=== PATIENT | female | born 1960 | race Caucasian/White ===

== ENCOUNTER 2022-04-11 18:23 | Emergency (ER) | payer OTHER, SELFPAY ==
[2022-04-11 19:48] VITALS: BP 177/103; PULSE 81; RESP 18; TEMP 36.7; O2SAT 97; BMI 21.9
--- NOTE | 2022-04-11 19:56 | EXP.UTC ---
Discharge Plan Disposition Patient Disposition: Home, Self-Care Condition: Good Prescriptions Prescriptions: New benzonatate [benzonatate] 100 mg capsule 100 mg PO TIDP PRN (Reason: Cough) Qty: 30 0RF methylprednisolone 4 mg Tablets,Dose Pack 4 mg PO DIRECTED Qty: 21 0RF oseltamivir [Tamiflu] 75 mg capsule 75 mg PO BID Qty: 10 0RF No Action fluoxetine 20 mg capsule 20 mg PO DAILY Qty: 90 0RF lisinopril 20 mg tablet 20 mg PO DAILY Qty: 90 0RF metoprolol succinate 200 mg tablet extended release 24 hr 200 mg PO DAILY Qty: 90 0RF diazepam 10 mg tablet 10 mg PO TID Qty: 90 2RF cephalexin 500 mg capsule 500 mg PO TID Qty: 30 0RF hydrocodone-acetaminophen 5-325 mg tablet 1 tab PO TID PRN (Reason: pain) 5 Days Qty: 15 0RF Referrals Follow up/Referrals: Dinh Fierro MD [Primary Care Provider] - See instructions Activity Restrictions/Add. Instructions Additional Instructions/Restrictions: Drink plenty of fluids. Take tylenol or ibuprofen for pain or fever. Take the medications as directed. Follow up with your regular doctor. GO TO THE ER FOR ANY WORSENING SYMPTOMS Clinical Impressions Clinical Impression: Acute viral syndrome, Exposure to influenza Instructions Patient Instructions: DI for Influenza -- Adult, Oseltamivir Discharge ED Provider: Leoncio Jenkins [facility] [place] General Stated complaint: body aches Mode of Arrival: Ambulatory Source of Information: Patient Limitations: No Limitations Time Seen by Provider: 04/11/22 19:56 HEENT Symptoms (Recalled from RN notes): Yes Resp Symptoms (Recalled from RN notes): Yes Skin Symptoms (Recalled from RN notes): No MS Symptoms (Recalled from RN notes): No Functional Status (Recalled from RN notes): n/a History of Present Illness Provider Complaint: pt comes in with c/o body aches, headache, cough. ongoing for 3 days. she was exposed to flu recently Related Data Previous Rx's Medication Instructions Recorded diazepam 10 mg tablet 10 mg PO TID #90 tabs 03/17/22 fluoxetine 20 mg capsule 20 mg PO DAILY #90 caps 03/17/22 lisinopril 20 mg tablet 20 mg PO DAILY #90 tabs 03/17/22 metoprolol succinate 200 mg 200 mg PO DAILY #90 tabs 03/17/22 tablet,extended release 24 hr cephalexin 500 mg capsule 500 mg PO TID #30 caps 04/01/22 benzonatate 100 mg capsule 100 mg PO TIDP PRN Cough #30 caps 04/11/22 hydrocodone 5 mg-acetaminophen 325 1 tab PO TID PRN pain 5 days #15 04/11/22 mg tablet tabs methylprednisolone 4 mg tablets in 4 mg PO DIRECTED #21 tabs 04/11/22 a dose pack oseltamivir 75 mg capsule (Tamiflu) 75 mg PO BID #10 caps 04/11/22 Allergies Allergy/AdvReac Type Severity Reaction Status Date / Time No Known Allergies Allergy Verified 04/11/22 19:50 Worker's Comp Is this a Worker's Comp case?: No [facility] Disclaimer: The information contained in this section may have been updated after the patient was seen, as this information can be updated by other users. Medical History Anxiety Crohn disease Hep C w/o coma, chronic Hypertension Family History Other Diabetes Social History Smoking Status: Current every day smoker alcohol intake: never substance use type: denies use current occupational status: unemployed Travel in the last 8 weeks: None ROS Obtained: Yes All systems reviewed & no additional complaints except as documented Constitutional Constitutional: Reports chills and Reports fever(s) Eyes Eyes: Denies eye discharge ENT Ears, Nose, Mouth, and Throat: Reports as per HPI Cardiovascular Cardiovascular: Denies chest pain Respiratory Respiratory: Denies chest congestion and Reports cough Gastrointestinal Gastrointestingal: Reports nausea; Denies abdominal pain, constipation, cramping, diarrhea or vomit
[2022-04-11 20:25] VITALS: BP 177/103; PULSE 81; RESP 18; TEMP 36.7
== END 2022-04-11 20:26 | disposition home or self-care (01) ==
PROVIDERS: Emergency Provider Nurse Practitioner Family; PCP Emergency Medicine
DX: R52 Pain, unspecified (principal); B34.9 Viral infection, unspecified; Z20.828 Contact with and (suspected) exposure to other viral communicable diseases
CPT/HCPCS: 99212; C9803; G0463; U0003; U0005

== ENCOUNTER → 2022-08-08 23:49 | Outpatient (CLI) | payer OTHER, SELFPAY ==
[2022-08-08 20:11] LABS: Amphetamine/Metha Screen,Urine Negative ng/ml (<1000); Barbiturates Screen,Urine Negative ng/ml (<200)
[2022-08-08 20:12] LABS: Benzodiazepines Screen,Urine Positive ng/ml (<200)
[2022-08-08 20:13] LABS: Cannabinoid Screen,Urine Negative ng/ml (<50)
[2022-08-08 20:14] LABS: Cocaine Screen,Urine Negative ng/ml (<300); Methadone Screen,Urine Negative ng/ml (<300)
[2022-08-08 20:15] LABS: Opiate Screen,Urine Positive ng/ml (<300)
[2022-08-08 20:16] LABS: Phencyclidine Screen,Urine Negative ng/ml (<25)
== END ==
PROVIDERS: PCP Emergency Medicine; Visit Provider Emergency Medicine
DX: F41.9 Anxiety disorder, unspecified (principal)
CPT/HCPCS: 80305

== ENCOUNTER → 2022-11-05 13:50 | Outpatient (CLI) | payer OTHER, SELFPAY ==
[2022-11-05 18:52] LABS: Basophils # 0.1 K/mm3 (0-0.2); Basophils % 1.1 % (0.1-2.0); Eosinophils # 0.2 K/mm3 (0.0-0.4); Eosinophils % 1.7 % (0.1-12.0); Hematocrit 51.7 % (37.0-47.0); Hemoglobin 16.4 g/dL (12.2-16.2); Lymphocytes # 2.5 K/mm3 (0.7-4.5); Lymphocytes % 24.9 % (10-50); Mean Corpuscular HGB Conc 31.7 g/dL (31.8-35.4); Mean Corpuscular Hemoglobin 29.7 pg (27.0-31.2); Mean Corpuscular Volume 93.7 fl (81-99); Mean Platelet Volume 9.4 fl (7.4-10.4); Monocytes # 0.7 K/mm3 (0.1-1.0); Monocytes % 7.5 % (1.7-9.3); Neutrophils # 6.5 K/mm3 (1.8-7.8); Neutrophils % 64.9 % (37.0-80.0); Platelet Count 299 K/mm3 (142-424); Red Blood Count 5.52 M/mm3 (4.20-5.40); Red Cell Distribution Width 13.6 % (11.5-17.5)
[2022-11-05 19:07] LABS: Amphetamine/Metha Screen,Urine Negative ng/ml (<1000)
[2022-11-05 19:08] LABS: Barbiturates Screen,Urine Negative ng/ml (<200)
[2022-11-05 19:09] LABS: Benzodiazepines Screen,Urine Positive ng/ml (<200); Cannabinoid Screen,Urine Negative ng/ml (<50)
[2022-11-05 19:10] LABS: Cocaine Screen,Urine Negative ng/ml (<300)
[2022-11-05 19:11] LABS: Methadone Screen,Urine Negative ng/ml (<300)
[2022-11-05 19:12] LABS: Phencyclidine Screen,Urine Negative ng/ml (<25)
[2022-11-05 19:30] LABS: Alanine Aminotransferase 31 U/L (12-78); Albumin Level 4.7 g/dl (3.5-5.0); Albumin/Globulin Ratio 1.6 (1.1-1.8); Alkaline Phosphatase 91 U/L (38-126); Aspartate Amino Transferase 31 U/L (14-36); Bilirubin,Total 0.3 mg/dl (0.2-1.3); Blood Urea Nitrogen 19 mg/dl (7-17); Calcium 9.4 mg/dl (8.4-10.2); Carbon Dioxide 28 mmol/L (22.0-30.0); Chloride 103 mmol/L (98-107); Chol/HDL Ratio 4.2 (1-3.5); Cholesterol 257 mg/dl (140-200); Estimated Glomerular Filt Rate 85 ml/min (>60); GFR (African American) 103 ML/MIN (>60); Globulin 2.9 g/dL (1.3-3.2); Glucose 64 mg/dl (74-100); HDL Cholesterol 61 mg/dl (40-60); Sodium 142 mmol/L (136-145); Total Protein,Serum 7.6 g/dl (6.3-8.2); Triglycerides 361 mg/dl (30-150); VLDL Cholesterol 72 mg/dL (0-40)
[2022-11-05 19:40] LABS: Direct LDL Cholesterol 145.28 mg/dL (100-129)
[2022-11-05 19:42] LABS: Opiate Screen,Urine Negative ng/ml (<300)
[2022-11-05 19:44] LABS: Free T4 (Free Thyroxine) 1.11 ng/dl (0.78-2.19)
[2022-11-05 19:47] LABS: 25-OH Vitamin D, Total 21.3 ng/mL (30-100)
[2022-11-05 20:00] LABS: Thyroid Stimulating Hormone 3.32 uIU/mL (0.465-4.68)
== END ==
PROVIDERS: PCP Emergency Medicine; Visit Provider Emergency Medicine
DX: I10 Essential (primary) hypertension (principal); E55.9 Vitamin D deficiency, unspecified; Z79.899 Other long term (current) drug therapy
CPT/HCPCS: 80053; 80061; 80305; 82306; 84439; 84443; 85025

== ENCOUNTER → 2023-01-21 08:25 | Outpatient (CLI) | payer OTHER, SELFPAY ==
[2023-01-02 18:42] LABS: Amphetamine/Metha Screen,Urine Negative ng/ml (<1000)
[2023-01-02 18:43] LABS: Barbiturates Screen,Urine Negative ng/ml (<200)
[2023-01-02 18:44] LABS: Benzodiazepines Screen,Urine Positive ng/ml (<200); Cannabinoid Screen,Urine Positive ng/ml (<50)
[2023-01-02 18:46] LABS: Cocaine Screen,Urine Negative ng/ml (<300); Methadone Screen,Urine Negative ng/ml (<300)
[2023-01-02 18:47] LABS: Opiate Screen,Urine Negative ng/ml (<300)
[2023-01-02 18:48] LABS: Phencyclidine Screen,Urine Negative ng/ml (<25)
== END ==
PROVIDERS: PCP Emergency Medicine; Visit Provider Emergency Medicine
DX: M79.2 Neuralgia and neuritis, unspecified (principal)
CPT/HCPCS: 80305

== ENCOUNTER → 2023-03-02 06:49 | Outpatient (CLI) | payer OTHER, SELFPAY ==
[2023-03-02 20:38] LABS: Amphetamine/Metha Screen,Urine Positive ng/ml (<1000)
[2023-03-02 20:39] LABS: Barbiturates Screen,Urine Negative ng/ml (<200)
[2023-03-02 20:40] LABS: Benzodiazepines Screen,Urine Negative ng/ml (<200); Cannabinoid Screen,Urine Negative ng/ml (<50)
[2023-03-02 20:41] LABS: Opiate Screen,Urine Positive ng/ml (<300)
[2023-03-02 20:42] LABS: Cocaine Screen,Urine Negative ng/ml (<300); Methadone Screen,Urine Negative ng/ml (<300)
[2023-03-02 20:43] LABS: Phencyclidine Screen,Urine Negative ng/ml (<25)
== END ==
PROVIDERS: PCP Emergency Medicine; Visit Provider Emergency Medicine
DX: M79.2 Neuralgia and neuritis, unspecified (principal)
CPT/HCPCS: 80305

== ENCOUNTER → 2023-04-28 23:54 | Outpatient (CLI) | payer OTHER, SELFPAY ==
[2023-04-28 18:42] LABS: Amphetamine/Metha Screen,Urine Positive ng/ml (<1000)
[2023-04-28 18:43] LABS: Barbiturates Screen,Urine Negative ng/ml (<200)
[2023-04-28 18:44] LABS: Cocaine Screen,Urine Negative ng/ml (<300)
[2023-04-28 18:46] LABS: Cannabinoid Screen,Urine Positive ng/ml (<50); Phencyclidine Screen,Urine Negative ng/ml (<25)
[2023-04-28 18:47] LABS: Methadone Screen,Urine Negative ng/ml (<300)
[2023-04-28 19:09] LABS: Benzodiazepines Screen,Urine Negative ng/ml (<200); Opiate Screen,Urine Positive ng/ml (<300)
== END ==
PROVIDERS: PCP Internal Medicine; Visit Provider Internal Medicine
DX: Z79.899 Other long term (current) drug therapy (principal)
CPT/HCPCS: 80305

== ENCOUNTER 2023-05-29 18:23 | Outpatient (CLI) | payer OTHER, SELFPAY ==
[2023-05-29 18:29] LABS: Barbiturates Screen,Urine Negative ng/ml (<200)
[2023-05-29 18:30] LABS: Benzodiazepines Screen,Urine Positive ng/ml (<200)
[2023-05-29 18:31] LABS: Amphetamine/Metha Screen,Urine Negative ng/ml (<1000); Methadone Screen,Urine Negative ng/ml (<300)
[2023-05-29 18:32] LABS: Cannabinoid Screen,Urine Positive ng/ml (<50)
[2023-05-29 18:33] LABS: Cocaine Screen,Urine Negative ng/ml (<300)
[2023-05-29 18:35] LABS: Opiate Screen,Urine Negative ng/ml (<300)
[2023-05-29 18:36] LABS: Phencyclidine Screen,Urine Negative ng/ml (<25)
== END 2023-05-29 23:59 ==
LOC: LAB.DROPOF 18:23
PROVIDERS: PCP Internal Medicine; Visit Provider Internal Medicine
DX: Z79.899 Other long term (current) drug therapy (principal); F90.9 Attention-deficit hyperactivity disorder, unspecified type; M79.2 Neuralgia and neuritis, unspecified
CPT/HCPCS: 80307

== ENCOUNTER 2023-06-22 11:10 | Outpatient (CLI) | payer OTHER, SELFPAY ==
[2023-06-22 11:46] LABS: Basophils % 0.5 % (0.1-2.0); Eosinophils # 0.1 K/mm3 (0.0-0.4); Eosinophils % 1.4 % (0.1-12.0); Hematocrit 40.1 % (37.0-47.0); Hemoglobin 13.9 g/dL (12.2-16.2); Mean Corpuscular HGB Conc 34.6 g/dL (31.8-35.4); Mean Corpuscular Hemoglobin 31.2 pg (27.0-31.2); Mean Corpuscular Volume 90.1 fl (81-99); Monocytes # 0.4 K/mm3 (0.1-1.0); Monocytes % 5.5 % (1.7-9.3); Neutrophils # 6.2 K/mm3 (1.8-7.8); Neutrophils % 79.5 % (37.0-80.0); Platelet Count 224 K/mm3 (142-424); Red Blood Count 4.45 M/mm3 (4.20-5.40); Red Cell Distribution Width 13.1 % (11.5-17.5); White Blood Count 7.8 K/mm3 (4.8-10.8)
[2023-06-22 12:03] LABS: Alanine Aminotransferase 24 U/L (12-78); Albumin Level 4.1 g/dl (3.5-5.0); Albumin/Globulin Ratio 1.5 (1.1-1.8); Alkaline Phosphatase 95 U/L (38-126); Anion Gap 12.2 mEq/L (5-15); Aspartate Amino Transferase 29 U/L (14-36); Bilirubin,Total 0.5 mg/dl (0.2-1.3); Blood Urea Nitrogen 22 mg/dl (7-17); Calcium 8.9 mg/dl (8.4-10.2); Carbon Dioxide 30 mmol/L (22.0-30.0); Chloride 101 mmol/L (98-107); Chol/HDL Ratio 4.4 (1-3.5); Cholesterol 167 mg/dl (140-200); Estimated Glomerular Filt Rate 42 ml/min (>60); GFR (African American) 51 ML/MIN (>60); Globulin 2.7 g/dL (1.3-3.2); Glucose 102 mg/dl (74-100); HDL Cholesterol 38 mg/dl (40-60); Magnesium 1.8 mg/dl (1.6-2.3); Potassium 3.2 mmoL/L (3.5-5.1); Sodium 140 mmol/L (136-145); Total Protein,Serum 6.8 g/dl (6.3-8.2); Triglycerides 200 mg/dl (30-150); VLDL Cholesterol 40 mg/dL (0-40)
[2023-06-22 12:14] LABS: Direct LDL Cholesterol 79.07 mg/dL (100-129)
[2023-06-22 12:19] LABS: 25-OH Vitamin D, Total 44.5 ng/mL (30-100)
[2023-06-22 16:51] LABS: Hemoglobin A1C 5.6 % (4.0-6.0)
== END 2023-06-22 23:59 ==
LOC: LAB 11:10
PROVIDERS: PCP Internal Medicine; Visit Provider Internal Medicine
DX: D72.829 Elevated white blood cell count, unspecified (principal); E83.42 Hypomagnesemia; N17.9 Acute kidney failure, unspecified; Z79.899 Other long term (current) drug therapy
CPT/HCPCS: 36415; 80053; 80061; 82306; 83036; 83735; 85025

== ENCOUNTER 2023-06-30 19:43 | Outpatient (CLI) | payer OTHER, SELFPAY ==
[2023-06-30 17:22] LABS: Blood Urea Nitrogen 17 mg/dl (7-17); Calcium 9.2 mg/dl (8.4-10.2); Carbon Dioxide 33 mmol/L (22.0-30.0); Chloride 99 mmol/L (98-107); Estimated Glomerular Filt Rate 64 ml/min (>60); GFR (African American) 77 ML/MIN (>60); Glucose 84 mg/dl (74-100); Magnesium 1.7 mg/dl (1.6-2.3); Sodium 139 mmol/L (136-145)
[2023-06-30 17:27] LABS: C-Reactive Protein 34.9 mg/L (0-4)
[2023-06-30 18:27] LABS: Erythrocyte Sedimentation Rate 26 mm/hr (0-30)
[2023-07-05 09:46] LABS: Antinuclear Antibodies (ANA) Negative
== END 2023-06-30 23:59 ==
LOC: LAB.DROPOF 19:43
PROVIDERS: PCP Internal Medicine; Visit Provider Internal Medicine
DX: K74.3 Primary biliary cirrhosis (principal); L94.0 Localized scleroderma [morphea]; E87.6 Hypokalemia; N17.9 Acute kidney failure, unspecified
CPT/HCPCS: 80048; 83735; 85651; 86038; 86140

== ENCOUNTER 2024-02-18 19:09 | Outpatient (CLI) | payer OTHER, SELFPAY ==
[2024-02-18 19:52] LABS: Microalbumin/Creatinine Ratio 7.4
[2024-02-18 19:56] LABS: Creatinine,Urine Random 153 mg/dL (Not Estab.)
== END 2024-02-18 23:59 | disposition home or self-care (01) ==
LOC: LAB.DROPOF 19:09
PROVIDERS: PCP Internal Medicine; Visit Provider Internal Medicine
DX: Z79.899 Other long term (current) drug therapy (principal); E78.2 Mixed hyperlipidemia
CPT/HCPCS: 82043; 82570